=== PATIENT | male | born 1995 | race African-American/Black ===

== ENCOUNTER 2017-09-08 02:18 | Emergency (ER) | payer SELFPAY ==
[~2017-09-08] VITALS: Ht 175.3 cm; Wt 83.0 kg
[2017-09-08 04:51] VITALS: BP 151/87
== END 2017-09-08 04:52 | disposition home or self-care (01) ==
LOC: EMS 02:20
DX: R00.2 Palpitations (principal); R07.9 Chest pain, unspecified
CPT/HCPCS: 93005; 99284